=== PATIENT | female | born 1960 | race Hispanic/Latino ===

== ENCOUNTER 2019-04-17 07:44 | Day surgery (SDC) | payer BC ==
[~2019-04-17 07:44] MED LIST: SODIUM CHLORIDE 0.9% 1000ML 1,000 ML IV ONE
[2019-04-17] MEDS ORDERED: FERR-82 PO (10:13)
[2019-04-17] MEDS ORDERED: ATOR40TA71 PO (10:13)
[2019-04-17 10:33] VITALS: BP 145/78
[2019-04-17 10:37] VITALS: BP 137/74
[2019-04-17 10:42] VITALS: BP 141/76
== END 2019-04-17 10:55 | disposition home or self-care (01) ==
LOC: DAH 07:44 → ENDO 07:44
PROVIDERS: ATTEND Internal Medicine
DX: C21.8 Malignant neoplasm of overlapping sites of rectum, anus and anal canal (principal); E78.5 Hyperlipidemia, unspecified; Z88.0 Allergy status to penicillin; Z98.890 Other specified postprocedural states; Z79.899 Other long term (current) drug therapy; Z82.49 Family history of ischemic heart disease and other diseases of the circulatory system
CPT/HCPCS: 45341; A4215; A4221; A4222; A4223; A4606; A4615; A4663; J7030